=== PATIENT | male | born 1970 | race African-American/Black ===

== ENCOUNTER 2016-08-02 10:00 | Inpatient (IN) | payer OTHER ==
[2016-08-02 10:16] VITALS: BMI 22.6
--- NOTE | 2016-08-02 11:08 | HP ---
CIWA Score - CIWA Score Nausea/Vomitin-Mild Nausea/No Vomiting Muscle Tremors: 1-None Visible, but [place] Anxiety: 4-Mod. Anxious/Guarded Agitation: 1-Slight > Activity Paroxysmal Sweats: 1-Minimal Palms Moist Orientation: 0-Oriented Tacttile Disturbances: 1-Very Mild Itch/Numbness Auditory Disturbances: 2-Mild Harshness/Frighten Visual Disturbances: 1-Very Mild Sensitivity Headache: 2-Mild CIWA-Ar Total Score: 14 Admission ROS BHS - HPI Chief Complaint: I need a break, I need to not drink so I can take care of my mother Allergies/Adverse Reactions: Allergies Allergy/AdvReac Type Severity Reaction Status Date / Time Penicillins Allergy Hives Verified 08/02/16 11:03 lobster Allergy Hives Uncoded 08/02/16 11:03 History of Present Illness: 45 yo gentleman here for detox from alcohol. [facility] last detox in 1999 at [facility]. Denies seizure or black out. States he was on percocet for renal calculi but detoxed himself from that a few weeks ago. [facility] mother is ill and he needs to take care of her. Exam Limitations: Clinical Condition - Ebola screening Have you traveled outside of the country in the last 21 days: No (N) Have you had contact with anyone from an Ebola affected area: No Have you been sick,other than usual withdrawal symptoms: No Do you have a fever: No - Review of Systems Constitutional: Loss of Appetite, Malaise, Changes in sleep, Unintentional Wgt. Loss EENT: reports: No Symptoms Reported Respiratory: reports: No Symptoms reported Cardiac: reports: Irregular Heart Rate GI: reports: Poor Appetite, Indigestion : reports: Frequency Musculoskeletal: reports: No Symptoms Reported Integumentary: reports: No Symptoms Reported Neuro: reports: Headache Endocrine: reports: No Symptoms Reported Hematology: reports: No Symptoms Reported Psychiatric: reports: Judgement Intact, Mood/Affect Appropiate, Orientated x3, Anxious Other Systems: Reviewed and Negative Patient History - Patient Medical History Hx Chronic Obstructive Pulmonary Disease (COPD): No Hx Cancer: No Hx Cardiac Disorders: No Hx Congestive Heart Failure: No Hx Hypertension: No Hx Hypercholesterolemia: No Hx Pacemaker: No HX Cerebrovascular Accident: No Hx Seizures: No Hx Dementia: No Hx Diabetes: No Hx Gastrointestinal Disorders: No Hx Liver Disease: No Hx Genitourinary Disorders: No Hx Sexually Transmitted Disorders: No Hx Renal Disease (ESRD): Yes (hx renal calculi) Hx Thyroid Disease: No Hx Human Immunodeficiency Virus (HIV): No Hx Hepatitis C: No Hx Depression: Yes (no meds currently) Hx Suicide Attempt: No Hx Bipolar Disorder: No Hx Schizophrenia: No - Patient Surgical History Past Surgical History: Yes Hx Orthopedic Surgery: Yes (hx surgical tx right collarbone age 12) - PPD History Previous Implant?: Yes Documented Results: Negative w/o proof Implanted On Prior [facility] Admission?: No PPD to be Administered?: Yes - Reproductive History Patient is a Female of Child Bearing Age (11 -55 yrs old): No (male) - Smoking Cessation Smoking history: Current every day smoker Have you smoked in the past 12 months: Yes Aproximately how many cigarettes per day: 20 Hx Chewing Tobacco Use: No Initiated information on smoking cessation: Yes 'Breaking Loose' booklet given: 08/02/16 (given on floor) - Substance & Tx. History Hx Alcohol Use: Yes Substance Use Type: Alcohol, Cocaine Hx Substance Use Treatment: Yes (detox, rehab) - Substances Abused Alcohol Route: Oral Frequency: Daily Amount used: 1 pint bacardi rum Age of first use: 16 Date of Last Use: 08/01/16 Cocaine Route: Smoking Frequency: Daily Amount used: $100 Age of first use: 19 Date of Last Use: 08/01/16 Family Disease History - Family Disease History Family Disease History: Other: Mother (hx cva, in hospital, dementia) Admission Physical Exam BHS - Vital Signs Vital Signs: Vital Signs - 24 hr 08/02/16 10:13 Temperature 96.7 F L Pulse Rate 80 Respiratory 18 Rate Blood Pressure 121/75 - Physical General Appearance: Yes: Nourished, Appropriately Dressed, Mild Distress, Anxious HEENTM: Yes: Hearing grossly Normal, Normal ENT Inspection, Normocephalic, Normal Voice Respiratory: Yes: Normal Breath Sounds, No Respiratory Distress Neck: Yes: No masses,lesions,Nodules, Supple Breast: Yes: Breast Exam Deferred Cardiology: Yes: Regular Rhythm, Regular Rate Abdominal: Yes: Soft Genitourinary: Yes: Frequency Back: Yes: Normal Inspection Musculoskeletal: Yes: full range of Motion, Gait Steady Extremities: Yes: Normal Inspection, Normal Range of Motion Neurological: Yes: Fully Oriented, Alert, Normal Mood/Affect Integumentary: Yes: Normal Color, Warm Lymphatic: Yes: Within Normal Limits - Diagnostic (1) Alcohol dependence with uncomplicated withdrawal Current Visit: Yes Status: Chronic (2) Nicotine dependence Current Visit: Yes Status: Acute Qualifiers: Nicotine product type: cigarettes Substance use status: uncomplicated Qualified Code(s): F17.210 - Nicotine dependence, cigarettes, uncomplicated (3) Cocaine dependence Current Visit: Yes Status: Acute Cleared for Admission [facility] - Detox or Rehab [facility] Level of Care: Medically Managed Detox Regimen/Protocol: Librium [facility] Breath Alcohol Content Breath Alcohol Content: 0 Urine Drug Screen - Results Drug Screen Negative: No Urine Drug Screen Results: PILAR-Cocaine
[2016-08-02] MEDS ORDERED: NICOTINE POLACRILEX 4 MG GUM BC PRN (11:14)
[2016-08-02] MEDS ORDERED: chlordiazePOXIDE HCL 25 MG CAPSULE PO PRN (11:14)
[2016-08-02] MEDS ORDERED: guaiFENesin/D-METHORPHAN HB 10 ML UNIT-DOSE CUPS PO PRN (11:14)
[2016-08-02] MEDS ORDERED: MAGNESIUM HYDROX 2400MG/30ML ORAL SUSPENSION 30 ML CUP PO PRN (11:14)
[2016-08-02] MEDS ORDERED: hydrOXYzine PAMOATE 50 MG CAPSULE (FP) PO PRN (11:14)
[2016-08-02] MEDS ORDERED: MAG HYDROX/AL HYDROX/SIMETH 30 ML UNIT-DOSE CUP PO PRN (11:14)
[2016-08-02] MEDS ORDERED: chlordiazePOXIDE HCL 25 MG CAPSULE PO ONE (11:14)
[2016-08-02] MEDS ORDERED: ACETAMINOPHEN 325 MG TABLET (FP) PO PRN (11:14)
[2016-08-02] MEDS ORDERED: P-EPHED 60MG/TRIPROLIDI 2.5MG TABLET PO PRN (11:14)
[2016-08-02] MEDS ORDERED: MENTHOL/PHENOL 1 EACH UD MM PRN (11:14)
[2016-08-02] MEDS ORDERED: LOPERAMIDE HCL 2 MG CAPSULE PO PRN (11:14)
[2016-08-02] MEDS ORDERED: MAGNESIUM CITRATE 300 ML BOTTLE PO PRN (11:14)
[2016-08-02] MEDS ORDERED: IBUPROFEN 400 MG TABLET (FP) PO PRN (11:14)
[2016-08-02] MEDS ORDERED: diphenhydrAMINE HCL 50 MG CAPSULE PO PRN (11:14)
--- NOTE | 2016-08-02 16:02 | EKG ---
Test Reason : Blood Pressure : / mmHG Vent. Rate : 072 BPM Atrial Rate : 072 BPM P-R Int : 168 ms QRS Dur : 076 ms QT Int : 386 ms P-R-T Axes : 073 068 061 degrees QTc Int : 422 ms NORMAL SINUS RHYTHM INCREASED R/S RATIO IN V1, CONSIDER EARLY TRANSITION OR POSTERIOR INFARCT ABNORMAL ECG NO PREVIOUS ECGS AVAILABLE Confirmed by SANDI PLUNKETT MD ([id number]) on 08/02/2016 4:02:08 PM Referred By: Confirmed By:SANDI PLUNKETT MD
[2016-08-02 17:57] LABS: URINE APPEARANCE CLEAR; URINE BILIRUBIN NEGATIVE (NEGATIVE); URINE BLOOD NEGATIVE (NEGATIVE); URINE COLOR YELLOW; URINE GLUCOSE (UA) NEGATIVE (NEGATIVE); URINE KETONE NEGATIVE (NEGATIVE); URINE NITRITE NEGATIVE (NEGATIVE); URINE PROTEIN NEGATIVE (NEGATIVE); URINE UROBILINOGEN NEGATIVE E.U./dl (0.2-1.0)
[2016-08-02 18:13] LABS: URINE LEUK ESTERASE TRACE (NEGATIVE)
[2016-08-02] MEDS: chlordiazePOXIDE HCL 25 MG CAPSULE PO SCH ×2 (18:26→23:37)
[2016-08-02 18:50] LABS: URINE MUCUS MANY; URINE RBC <1 /hpf (0-3); URINE WBC 1 /hpf (3-5)
[2016-08-02] MEDS: THIAMINE HCL 100 MG TABLET (FP) PO SCH (23:37)
[2016-08-03] MEDS: chlordiazePOXIDE HCL 25 MG CAPSULE PO SCH ×4 (06:13→22:00)
[2016-08-03 09:19] LABS: MCH 30.4 pg (25.7-33.7); MEAN CELL VOLUME 92.3 fl (80-96); MEAN PLT VOLUME 9.3 fl (7.5-11.1); PLATELET COUNT 211 K/MM3 (134-434); RDW 13.2 % (11.9-15.9)
[2016-08-03 09:26] LABS: ALBUMIN 3.2 g/dl (3.4-5.0); ALK PHOS 46 U/L (45-117); ANION GAP 6 (8-16); BILIRUBIN,TOTAL 0.3 mg/dL (0.2-1.0); CALCIUM 8.6 mg/dL (8.5-10.1); CO2 29 mmol/L (21-32); GLUCOSE,RANDOM 85 mg/dL (74-106); SGOT/AST 12 U/L (15-37); SGPT/ALT 16 U/L (12-78); TOT PROT 6.2 g/dl (6.4-8.2)
[2016-08-03] MEDS: PRENATAL VITAMINS W/ FOLIC ACID TABLET (FP) PO SCH (10:30)
--- NOTE | 2016-08-03 10:30 | PN ---
S CIWA - CIWA Score Nausea/Vomitin Muscle Tremors: 3 Anxiety: 3 Agitation: 2 Paroxysmal Sweats: 1-Minimal Palms Moist Orientation: 0-Oriented Tacttile Disturbances: 1-Very Mild Itch/Numbness Auditory Disturbances: 1-Very Mild Visual Disturbances: 1-Very Mild Sensitivity Headache: 2-Mild CIWA-Ar Total Score: 17 BHS Progress Note (SOAP) Subjective: ALERT,IRRITABLE,ANXIOUS,INTERRUPTED SLEEP,TREMOR Objective: 08/03/16 10:27 Laboratory Last Values WBC 5.0 K/mm3 (4.0-10.0) 08/03/16 07:20 RBC 4.55 M/mm3 (4.00-5.60) 08/03/16 07:20 Hgb 13.8 GM/dL (11.7-16.9) 08/03/16 07:20 Hct 42.0 % (35.4-49) 08/03/16 07:20 MCV 92.3 fl (80-96) 08/03/16 07:20 MCHC 33.0 g/dl (32.0-35.9) 08/03/16 07:20 RDW 13.2 % (11.9-15.9) 08/03/16 07:20 Plt Count 211 K/MM3 (134-434) 08/03/16 07:20 MPV 9.3 fl (7.5-11.1) 08/03/16 07:20 Sodium 141 mmol/L (136-145) 08/03/16 07:20 Potassium 4.1 mmol/L (3.5-5.1) 08/03/16 07:20 Chloride 106 mmol/L (98-107) 08/03/16 07:20 Carbon Dioxide 29 mmol/L (21-32) 08/03/16 07:20 Anion Gap 6 (8-16) L 08/03/16 07:20 BUN 8 mg/dL (7-18) 08/03/16 07:20 Creatinine 1.0 mg/dL (0.7-1.3) 08/03/16 07:20 Creat Clearance w eGFR > 60 (>60) 08/03/16 07:20 Random Glucose 85 mg/dL (74-106) 08/03/16 07:20 Calcium 8.6 mg/dL (8.5-10.1) 08/03/16 07:20 Total Bilirubin 0.3 mg/dL (0.2-1.0) 08/03/16 07:20 AST 12 U/L (15-37) L 08/03/16 07:20 ALT 16 U/L (12-78) 08/03/16 07:20 Alkaline Phosphatase 46 U/L (45-117) 08/03/16 07:20 Total Protein 6.2 g/dl (6.4-8.2) L 08/03/16 07:20 Albumin 3.2 g/dl (3.4-5.0) L 08/03/16 07:20 Urine Color Yellow 08/02/16 14:00 Urine Appearance Clear 08/02/16 14:00 Urine pH 6.0 (5.0-8.0) 08/02/16 14:00 Ur Specific [place] 1.025 (1.001-1.035) 08/02/16 14:00 Urine Protein Negative (NEGATIVE) 08/02/16 14:00 Urine Glucose (UA) Negative (NEGATIVE) 08/02/16 14:00 Urine Ketones Negative (NEGATIVE) 08/02/16 14:00 Urine Blood Negative (NEGATIVE) 08/02/16 14:00 Urine Nitrite Negative (NEGATIVE) 08/02/16 14:00 Urine Bilirubin Negative (NEGATIVE) 08/02/16 14:00 Urine Urobilinogen Negative E.U./dl (0.2-1.0) 08/02/16 14:00 Ur Leukocyte Esterase Trace (NEGATIVE) H 08/02/16 14:00 Urine RBC <1 /hpf (0-3) 08/02/16 14:00 Urine WBC 1 /hpf (3-5) 08/02/16 14:00 Urine Mucus Many 08/02/16 14:00 RPR Titer Nonreactive (NONREACTIVE) 08/03/16 07:20 LABS PENDING 08/03/16 10:28 Vital Signs Temperature 97.9 F 08/03/16 10:00 Pulse Rate 79 08/03/16 10:00 Respiratory Rate 18 08/03/16 10:00 Blood Pressure 118/71 08/03/16 10:00 O2 Sat by Pulse Oximetry (%) Assessment: 08/03/16 10:28 EKG NSR NO CHEST PAIN,NO SOB NO DIZZINESS 08/03/16 10:29 WITHDRAWAL SYMPTOM Plan: CONTINUE DETOX
[2016-08-03] MEDS: THIAMINE HCL 100 MG TABLET (FP) PO SCH (21:24)
[2016-08-04] MEDS: chlordiazePOXIDE HCL 25 MG CAPSULE PO SCH ×2 (05:49→10:09)
--- NOTE | 2016-08-04 09:29 | PN ---
S CIWA - CIWA Score Nausea/Vomitin Muscle Tremors: 3 Anxiety: 2 Agitation: 2 Paroxysmal Sweats: 1-Minimal Palms Moist Orientation: 0-Oriented Tacttile Disturbances: 1-Very Mild Itch/Numbness Auditory Disturbances: 1-Very Mild Visual Disturbances: 1-Very Mild Sensitivity Headache: 2-Mild CIWA-Ar Total Score: 16 BHS Progress Note (SOAP) Subjective: ALERT,IRRITABLE,ANXIOUS,INTERRUPTED SLEEP,TREMOR Objective: 08/04/16 09:28 Vital Signs Temperature 98.4 F 08/04/16 06:00 Pulse Rate 76 08/04/16 06:00 Respiratory Rate 18 08/04/16 06:00 Blood Pressure 107/70 08/04/16 06:00 O2 Sat by Pulse Oximetry (%) Laboratory Last Values WBC 5.0 K/mm3 (4.0-10.0) 08/03/16 07:20 RBC 4.55 M/mm3 (4.00-5.60) 08/03/16 07:20 Hgb 13.8 GM/dL (11.7-16.9) 08/03/16 07:20 Hct 42.0 % (35.4-49) 08/03/16 07:20 MCV 92.3 fl (80-96) 08/03/16 07:20 MCHC 33.0 g/dl (32.0-35.9) 08/03/16 07:20 RDW 13.2 % (11.9-15.9) 08/03/16 07:20 Plt Count 211 K/MM3 (134-434) 08/03/16 07:20 MPV 9.3 fl (7.5-11.1) 08/03/16 07:20 Sodium 141 mmol/L (136-145) 08/03/16 07:20 Potassium 4.1 mmol/L (3.5-5.1) 08/03/16 07:20 Chloride 106 mmol/L (98-107) 08/03/16 07:20 Carbon Dioxide 29 mmol/L (21-32) 08/03/16 07:20 Anion Gap 6 (8-16) L 08/03/16 07:20 BUN 8 mg/dL (7-18) 08/03/16 07:20 Creatinine 1.0 mg/dL (0.7-1.3) 08/03/16 07:20 Creat Clearance w eGFR > 60 (>60) 08/03/16 07:20 Random Glucose 85 mg/dL (74-106) 08/03/16 07:20 Calcium 8.6 mg/dL (8.5-10.1) 08/03/16 07:20 Total Bilirubin 0.3 mg/dL (0.2-1.0) 08/03/16 07:20 AST 12 U/L (15-37) L 08/03/16 07:20 ALT 16 U/L (12-78) 08/03/16 07:20 Alkaline Phosphatase 46 U/L (45-117) 08/03/16 07:20 Total Protein 6.2 g/dl (6.4-8.2) L 08/03/16 07:20 Albumin 3.2 g/dl (3.4-5.0) L 08/03/16 07:20 Urine Color Yellow 08/02/16 14:00 Urine Appearance Clear 08/02/16 14:00 Urine pH 6.0 (5.0-8.0) 08/02/16 14:00 Ur Specific [place] 1.025 (1.001-1.035) 08/02/16 14:00 Urine Protein Negative (NEGATIVE) 08/02/16 14:00 Urine Glucose (UA) Negative (NEGATIVE) 08/02/16 14:00 Urine Ketones Negative (NEGATIVE) 08/02/16 14:00 Urine Blood Negative (NEGATIVE) 08/02/16 14:00 Urine Nitrite Negative (NEGATIVE) 08/02/16 14:00 Urine Bilirubin Negative (NEGATIVE) 08/02/16 14:00 Urine Urobilinogen Negative E.U./dl (0.2-1.0) 08/02/16 14:00 Ur Leukocyte Esterase Trace (NEGATIVE) H 08/02/16 14:00 Urine RBC <1 /hpf (0-3) 08/02/16 14:00 Urine WBC 1 /hpf (3-5) 08/02/16 14:00 Urine Mucus Many 08/02/16 14:00 RPR Titer Nonreactive (NONREACTIVE) 08/03/16 07:20 Assessment: 08/04/16 09:29 WITHDRAWAL SYMPTOM Plan: CONTINUE DETOX
--- NOTE | 2016-08-04 09:52 | CONSULT ---
[facility] Psychiatric Consult - Data Date of interview: 08/04/16 Admission source: [facility] Identifying data: This is a 45 year old black male who is currently homeless, without financial support. Substance Abuse History: Patient with history of alcohol (1pint of bacardi), cocaine($100 daily), nicotine use (smokes cigarettes 1 PPID). Psychiatric History: Patient is poor historian, irritable and angry, admits several psychiatric hospitalizations, states carries a diagnosis of bipolar/ schizophrenia,no follow-up, reports he recently released from 24 months of being incarcerated,states was on Seroquel, Prozac(did not work), Trazodone( gives me a headaches), willing to restart Seroquel 50 mg po hs. Physical/Sexual Abuse/Trauma History: denies Mental Status Exam - Mental Status Exam Alert and Oriented to: Place, Person Cognitive Function: Impaired Patient Appearance: Well Groomed Mood: Angry, Hostile, Irritable Affect: Mood Congruent Patient Behavior: Guarded, Talkative Speech Pattern: Clear, Appropriate Voice Loudness: Normal Thought Process: Tangential Thought Disorder: Paranoid Ideation (on and off) Hallucinations: Auditory (on and off) Suicidal Ideation: Denies Homicidal Ideation: Denies Insight/Judgement: Poor Sleep: Poorly Appetite: Weight loss (lost 30 lbs) Muscle strength/Tone: Normal Gait/Station: Normal Psychiatric Findings - Problem List ([place] 1, 2,3) (1) Cocaine dependence Current Visit: Yes Status: Acute (2) Nicotine dependence Current Visit: Yes Status: Acute Qualifiers: Nicotine product type: cigarettes Substance use status: uncomplicated Qualified Code(s): F17.210 - Nicotine dependence, cigarettes, uncomplicated (3) Alcohol dependence with uncomplicated withdrawal Current Visit: Yes Status: Chronic (4) Schizoaffective disorder Current Visit: Yes Status: Acute - Initial Treatment Plan Initial Treatment Plan: to start Seroquel 50 mg po hs, continue detox. protocol
[2016-08-04] MEDS: PRENATAL VITAMINS W/ FOLIC ACID TABLET (FP) PO SCH (10:09)
[2016-08-04] MEDS: chlordiazePOXIDE 5 MG CAPSULE PO SCH ×2 (17:55→23:57)
[2016-08-04] MEDS ORDERED: QUEtiapine FUMARATE 50 MG TABLET PO SCH (22:00)
[2016-08-05] MEDS: THIAMINE HCL 100 MG TABLET (FP) PO SCH ×2 (00:03→22:21)
[2016-08-05] MEDS: chlordiazePOXIDE 5 MG CAPSULE PO SCH ×2 (05:34→10:32)
--- NOTE | 2016-08-05 09:55 | CONSULT ---
[facility] Psychiatric Consult - Data Date of interview: 08/05/16 Admission source: [facility] Identifying data: This is 45 years old single male residing in Long-Term, supported by [facility] admitted to [address] [place] [address] for Alcohol and Cocaine dependence. Substance Abuse History: Patient reports drinking since 16 years old escalating to 1 pint of Bacardi rum daily,cocaine/crack since 19 years old,spending about $ 100 daily. Medical History: Unremarkable. Psychiatric History: Long and extensive psychiatric history.patient was dx with Schizophrenia,then with Schizoaffective disorder.Reports several psychiatric hospitalizations.Poor compliance with medications due to his cognitive deficit, drug habbits. Physical/Sexual Abuse/Trauma History: denies Mental Status Exam - Mental Status Exam Alert and Oriented to: Time, Place, Person Cognitive Function: Grossly Intact Patient Appearance: Unkempt Mood: Anxious, Irritable Affect: Mood Congruent, Labile Patient Behavior: Cooperative Speech Pattern: Clear Voice Loudness: Mildly Loud Thought Process: Goal Oriented Thought Disorder: Not Present Hallucinations: Denies Suicidal Ideation: Denies Homicidal Ideation: Denies Insight/Judgement: Fair Sleep: Fair Appetite: Fair Muscle strength/Tone: Normal Gait/Station: Normal Psychiatric Findings - Problem List ([place] 1, 2,3) (1) Cocaine dependence Status: Chronic (2) Nicotine dependence Status: Chronic Qualifiers: Nicotine product type: cigarettes Substance use status: uncomplicated Qualified Code(s): F17.210 - Nicotine dependence, cigarettes, uncomplicated (3) Schizoaffective disorder Status: Chronic (4) Alcohol dependence with uncomplicated withdrawal Status: Chronic - Initial Treatment Plan Initial Treatment Plan: Patient was reevaluated today due to ongoing anxiety, irritability,mood instability.Patient reports that Seroquel used to help him when he was on higher doses and taking a few times a day.Properties of Seroquel has been discussed with the patient including side effects,benefits and dose adjustment.Seroquel 50 mg po hs will be adjusted to 100 mg po hs. Supportive therapy provided. Will monitor progress.
[2016-08-05] MEDS: QUEtiapine FUMARATE 50 MG TABLET PO SCH ×2 (10:32→22:21)
[2016-08-05] MEDS: PRENATAL VITAMINS W/ FOLIC ACID TABLET (FP) PO SCH (10:33)
[2016-08-05] MEDS ORDERED: CYCLOBENZAPRINE HCL 10 MG TABLET (FP) PO PRN (11:35)
--- NOTE | 2016-08-05 11:35 | PN ---
BHS Progress Note (SOAP) Subjective: interrupted sleep,lbp , decreased appetite Objective: 08/05/16 11:33 Vital Signs Temperature 98.1 F 08/05/16 10:12 Pulse Rate 77 08/05/16 10:12 Respiratory Rate 18 08/05/16 10:12 Blood Pressure 111/69 08/05/16 10:12 O2 Sat by Pulse Oximetry (%) Laboratory Tests 08/02/16 08/03/16 08/03/16 14:00 07:20 07:20 WBC 5.0 RBC 4.55 Hgb 13.8 Hct 42.0 MCV 92.3 MCHC 33.0 RDW 13.2 Plt Count 211 MPV 9.3 Sodium 141 Potassium 4.1 Chloride 106 Carbon Dioxide 29 Anion Gap 6 L BUN 8 Creatinine 1.0 Creat Clearance w eGFR > 60 Random Glucose 85 Calcium 8.6 Total Bilirubin 0.3 AST 12 L ALT 16 Alkaline Phosphatase 46 Total Protein 6.2 L Albumin 3.2 L Urine Color Yellow Urine Appearance Clear Urine pH 6.0 Ur Specific [place] 1.025 Urine Protein Negative Urine Glucose (UA) Negative Urine Ketones Negative Urine Blood Negative Urine Nitrite Negative Urine Bilirubin Negative Urine Urobilinogen Negative Ur Leukocyte Esterase Trace H Urine RBC <1 Urine WBC 1 Urine Mucus Many RPR Titer 08/03/16 07:20 WBC RBC Hgb Hct MCV MCHC RDW Plt Count MPV Sodium Potassium Chloride Carbon Dioxide Anion Gap BUN Creatinine Creat Clearance w eGFR Random Glucose Calcium Total Bilirubin AST ALT Alkaline Phosphatase Total Protein Albumin Urine Color Urine Appearance Urine pH Ur Specific [place] Urine Protein Urine Glucose (UA) Urine Ketones Urine Blood Urine Nitrite Urine Bilirubin Urine Urobilinogen Ur Leukocyte Esterase Urine RBC Urine WBC Urine Mucus RPR Titer Nonreactive pt aox3 in nad ambulating Assessment: 08/05/16 11:33 withdrawl sxs lbp Plan: cont. detox increase fluids flexeril 10mg tid/prn ensure bid d/c in am
[2016-08-05] MEDS: chlordiazePOXIDE HCL 10 MG CAPSULE PO SCH ×2 (17:41→23:39)
[2016-08-06] MEDS: chlordiazePOXIDE HCL 10 MG CAPSULE PO SCH (05:34)
--- NOTE | 2016-08-06 08:37 | DS ---
[facility] Detox Discharge Summary Admission Date: 08/02/16 Discharge Date: 08/06/16 - History Present History: Alcohol Dependence, Cocaine Dependence - Physical Exam Results Vital Signs: Vital Signs Temperature 97.5 F L 08/06/16 06:28 Pulse Rate 78 08/06/16 06:28 Respiratory Rate 18 08/06/16 06:28 Blood Pressure 102/61 08/06/16 06:28 O2 Sat by Pulse Oximetry (%) - Treatment Hospital Course: Detox Protocol Followed, Detoxed Safely, Responded well, Discharged Condition Good, Rehab Referral Accepted - Medication Discharge Medications: Ambulatory Orders Quetiapine Fumarate [Seroquel -] 50 mg PO HS #30 tablet 08/04/16 - Diagnosis (1) Alcohol dependence with uncomplicated withdrawal Current Visit: Yes Status: Chronic (2) Cocaine dependence Current Visit: Yes Status: Chronic (3) Nicotine dependence Current Visit: Yes Status: Chronic Qualifiers: Nicotine product type: cigarettes Substance use status: uncomplicated Qualified Code(s): F17.210 - Nicotine dependence, cigarettes, uncomplicated (4) Schizoaffective disorder Current Visit: Yes Status: Chronic - AMA Did Patient Leave Against Medical Advice: No
[2016-08-06] MEDS: QUEtiapine FUMARATE 50 MG TABLET PO SCH (10:00)
[2016-08-06] MEDS: PRENATAL VITAMINS W/ FOLIC ACID TABLET (FP) PO SCH (10:01)
[2016-08-06 10:04] VITALS: BP 109/67; PULSE 89; TEMP 98.6
== END 2016-08-06 10:30 | disposition home or self-care (01) | DRG 774 ==
LOC: YASAS 10:00 → Y6N 13:31
PROVIDERS: ADMIT Internal Medicine; ATTEND Internal Medicine
PROC: HZ2ZZZZ Detoxification Services for Substance Abuse Treatment (ICD-10-PCS; principal; 2016-08-02)
DX: F10.230 Alcohol dependence with withdrawal, uncomplicated (principal); F14.20 Cocaine dependence, uncomplicated; F17.210 Nicotine dependence, cigarettes, uncomplicated; F25.9 Schizoaffective disorder, unspecified; M54.5 Low back pain; Z87.442 Personal history of urinary calculi
CPT/HCPCS: 36415; 80053; 81003; 81015; 85027; 86593; 93005; 93010

== ENCOUNTER 2017-08-25 11:54 | Inpatient (IN) | payer OTHER ==
[2017-08-25 14:16] VITALS: BMI 26.4
--- NOTE | 2017-08-25 14:50 | HP ---
CIWA Score - CIWA Score Nausea/Vomitin-No Nausea/No Vomiting Muscle Tremors: 3 Anxiety: 4-Mod. Anxious/Guarded Agitation: 2 Paroxysmal Sweats: 3 Orientation: 0-Oriented Tacttile Disturbances: 2-Mild Itch/Numbness/Burn Auditory Disturbances: 0-None Visual Disturbances: 0-None Headache: 2-Mild CIWA-Ar Total Score: 16 Admission ROS BHS - HPI Chief Complaint: I'm just tired. I need help." Patient is here to detox from Alcohol. Allergies/Adverse Reactions: Allergies Allergy/AdvReac Type Severity Reaction Status Date / Time Penicillins Allergy Hives Verified 08/02/16 11:03 lobster Allergy Hives Uncoded 08/02/16 11:03 Exam Limitations: No Limitations - Ebola screening Have you traveled outside of the country in the last 21 days: No Have you had contact with anyone from an Ebola affected area: No Have you been sick,other than usual withdrawal symptoms: No Do you have a fever: No - Review of Systems Constitutional: Chills, Diaphoresis, Loss of Appetite, Malaise, Night Sweats, Changes in sleep, Unintentional Wgt. Loss (Lost approx. 10 lbs. over last 1 month.) EENT: reports: Hearing Loss, Nose Congestion, Sinus Pressure Respiratory: reports: Cough Cardiac: reports: No Symptoms Reported GI: reports: Diarrhea, Poor Appetite, Abdominal cramping (Heartburn.) : reports: Pain (Lower Back Pain due to Kidney stone (Chronic occurrence).) Musculoskeletal: reports: Back Pain (Due to Chronic Kidney stones.), Joint Pain , Joint Stiffness Integumentary: reports: No Symptoms Reported Neuro: reports: Headache, Tremors Endocrine: reports: No Symptoms Reported Hematology: reports: No Symptoms Reported Psychiatric: reports: Judgement Intact, Mood/Affect Appropiate, Orientated x3, Anxious, Depressed (In past (with Treatment); None currently.) Other Systems: Reviewed and Negative Patient History - Patient Medical History Hx Anemia: No Hx Asthma: No Hx Chronic Obstructive Pulmonary Disease (COPD): No Hx Cancer: No Hx Cardiac Disorders: No Hx Congestive Heart Failure: No Hx Hypertension: No Hx Hypercholesterolemia: No Hx Pacemaker: No HX Cerebrovascular Accident: No Hx Seizures: No Hx Dementia: No Hx Diabetes: No Hx Gastrointestinal Disorders: No Hx Liver Disease: No Hx Genitourinary Disorders: No Hx Sexually Transmitted Disorders: No Hx Renal Disease (ESRD): Yes (hx renal calculi) Hx Thyroid Disease: No Hx Human Immunodeficiency Virus (HIV): No (Last Tested: 06/2017: NEGATIVE.) Hx Hepatitis C: No (Last Tested: 2008: NEGATIVE.) Hx Depression: Yes (Not currently; Treatment in past.) 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 - Patient Surgical History Past Surgical History: Yes Hx Neurologic Surgery: No Hx Cataract Extraction: No Hx Cardiac Surgery: No Hx Lung Surgery: No Hx Breast Surgery: No Hx Breast Biopsy: No Hx Abdominal Surgery: No Hx Appendectomy: No Hx Cholecystectomy: No Hx Genitourinary Surgery: Yes (Stent in Kidneys to prevent Stone formation (1998 ).) Hx Orthopedic Surgery: Yes (hx surgical tx right collarbone age 12) Anesthesia Reaction: No - PPD History Previous Implant?: Yes Documented Results: Negative w/proof Implanted On Prior [facility] Admission?: Yes Date: 08/04/16 PPD to be Administered?: No - Reproductive History Patient is a Female of Child Bearing Age (11 -55 yrs old): No (PATIENT IS MALE.) - Smoking Cessation Smoking history: Current every day smoker Have you smoked in the past 12 months: Yes Aproximately how many cigarettes per day: 20 Cigars Per Day: 0 (Stopped smoking 2 months ago.) Hx Chewing Tobacco Use: No Initiated information on smoking cessation: Yes 'Breaking Loose' booklet given: 08/25/17 (GIVEN TO PATIENT.) - Substance & Tx. History Hx Alcohol Use: Yes Hx Substance Use: Yes Substance Use Type: Alcohol, Cocaine - Substances Abused Alcohol Route: Oral Frequency: Daily Amount used: 1 bottle Bacardi Rum. Age of first use: 46 Date of Last Use: 08/23/17 Cocaine Route: Smoking Frequency: Daily Age of first use: 19 Date of Last Use: 08/25/17 Family Disease History - Family Disease History Family Disease History: CA: Mother (hx cva, in hospital, dementia; Breast Ca.), Other: Mother Admission Physical Exam BHS - Vital Signs Vital Signs: Vital Signs - 24 hr 08/25/17 14:15 Temperature 97 F L Pulse Rate 86 Respiratory 20 Rate Blood Pressure 112/68 - Physical General Appearance: Yes: No Apparent Distress, Nourished, Appropriately Dressed , Tremorous, Anxious HEENTM: Yes: Hearing grossly Normal, Normocephalic, Normal Voice, JARRED, Pharynx Normal Respiratory: Yes: Chest Non-Tender, Lungs Clear, No Respiratory Distress, No Accessory Muscle Use Neck: Yes: No masses,lesions,Nodules, Supple, Trachea in good position Breast: Yes: Breast Exam Deferred Cardiology: Yes: Regular Rhythm, Regular Rate, S1, S2 Abdominal: Yes: Normal Bowel Sounds, Non Tender, Flat, Soft Genitourinary: Yes: Within Normal Limits Back: Yes: CVA Tenderness, Decreased Range of Motion Musculoskeletal: Yes: full range of Motion, Gait Steady, Back pain (Patient has history of Chronic Renal Stones.) Extremities: Yes: Normal Capillary Refill, Normal Range of Motion, Non-Tender, Tremors Neurological: Yes: Fully Oriented, Alert, Normal Mood/Affect, Normal Response Integumentary: Yes: Normal Color, Dry, Warm Lymphatic: Yes: Within Normal Limits - Diagnostic (1) Cocaine dependence, uncomplicated Current Visit: Yes Status: Acute (2) History of bipolar disorder Current Visit: Yes Status: Suspected (3) Alcohol dependence with uncomplicated withdrawal Current Visit: Yes Status: Acute (4) Nicotine dependence Current Visit: Yes Status: Chronic Qualifiers: Nicotine product type: cigarettes Substance use status: uncomplicated Qualified Code(s): F17.210 - Nicotine dependence, cigarettes, uncomplicated (5) History of renal calculi Current Visit: Yes Status: Chronic Cleared for Admission [facility] - Detox or Rehab [facility] Level of Care: Medically Managed Detox Regimen/Protocol: Librium [facility] Breath Alcohol Content Breath Alcohol Content: 0 Urine Drug Screen - Results Drug Screen Negative: No Urine Drug Screen Results: PILAR-Cocaine, BZO-Benzodiazepines
[2017-08-25] MEDS ORDERED: ACETAMINOPHEN 325 MG TABLET (FP) PO PRN (15:16)
[2017-08-25] MEDS ORDERED: guaiFENesin/D-METHORPHAN HB 10 ML UNIT-DOSE CUPS PO PRN (15:16)
[2017-08-25] MEDS ORDERED: LOPERAMIDE HCL 2 MG CAPSULE PO PRN (15:16)
[2017-08-25] MEDS ORDERED: MENTHOL/PHENOL 1 EACH UD MM PRN (15:16)
[2017-08-25] MEDS ORDERED: chlordiazePOXIDE HCL 25 MG CAPSULE PO PRN (15:16)
[2017-08-25] MEDS ORDERED: NICOTINE POLACRILEX 2 MG GUM BUC PRN (15:16)
[2017-08-25] MEDS ORDERED: MAGNESIUM HYDROX 2400MG/30ML ORAL SUSPENSION 30 ML CUP PO PRN (15:16)
[2017-08-25] MEDS ORDERED: MAGNESIUM CITRATE 300 ML BOTTLE PO PRN (15:16)
[2017-08-25] MEDS ORDERED: MAG HYDROX/AL HYDROX/SIMETH 30 ML UNIT-DOSE CUP PO PRN (15:16)
[2017-08-25] MEDS ORDERED: NAPROXEN 500 MG TABLET (FP) PO PRN (15:20)
[2017-08-25] MEDS: chlordiazePOXIDE HCL 25 MG CAPSULE PO ONE ×3 (19:59→20:07)
[2017-08-25] MEDS: P-EPHED 60MG/TRIPROLIDI 2.5MG TABLET PO PRN (20:00)
[2017-08-25] MEDS: NICOTINE 21 MG/24 HOURS TOPICAL PATCH TD SCH (20:01)
[2017-08-25] MEDS: chlordiazePOXIDE HCL 25 MG CAPSULE PO SCH ×2 (20:02→22:54)
[2017-08-25] MEDS: THIAMINE HCL 100 MG TABLET (FP) PO SCH (22:54)
[2017-08-25 23:25] LABS: URINE APPEARANCE TURBID; URINE BILIRUBIN NEGATIVE (NEGATIVE); URINE BLOOD NEGATIVE (NEGATIVE); URINE COLOR AMBER; URINE GLUCOSE (UA) NEGATIVE (NEGATIVE); URINE KETONE NEGATIVE (NEGATIVE); URINE LEUK ESTERASE NEGATIVE (NEGATIVE); URINE NITRITE NEGATIVE (NEGATIVE); URINE UROBILINOGEN NEGATIVE mg/dL (0.2-1.0)
[2017-08-25 23:28] LABS: URINE PROTEIN 1+ (NEGATIVE)
[2017-08-25 23:35] LABS: EPI CELLS RARE /HPF (FEW); URINE BACTERIA RARE /hpf (NONE SEEN); URINE MUCUS MANY
[2017-08-26] MEDS: chlordiazePOXIDE HCL 25 MG CAPSULE PO SCH ×4 (06:14→22:43)
--- NOTE | 2017-08-26 09:51 | EKG ---
Test Reason : Blood Pressure : / mmHG Vent. Rate : 082 BPM Atrial Rate : 082 BPM P-R Int : 168 ms QRS Dur : 078 ms QT Int : 372 ms P-R-T Axes : 062 062 049 degrees QTc Int : 434 ms NORMAL SINUS RHYTHM NORMAL ECG WHEN COMPARED WITH ECG OF 02-AUG-2016 14:53, NO SIGNIFICANT CHANGE WAS FOUND Confirmed by BONNIE SARABIA MD ([id number]) on 08/26/2017 9:51:14 AM Referred By: Confirmed By:BONNIE SARABIA MD
[2017-08-26] MEDS: PRENATAL VITAMINS W/ FOLIC ACID TABLET (FP) PO SCH (10:28)
[2017-08-26 10:29] LABS: HEMATOCRIT 44.4 % (35.4-49); HEMOGLOBIN 14.4 GM/dL (11.7-16.9); MCH 29.5 pg (25.7-33.7); MCHC 32.4 g/dl (32.0-35.9); MEAN CELL VOLUME 91.1 fl (80-96); MEAN PLT VOLUME 9.4 fl (7.5-11.1); PLATELET COUNT 215 K/MM3 (134-434); RBC 4.87 M/mm3 (4.00-5.60); RDW 13.4 % (11.9-15.9)
[2017-08-26] MEDS: TAMSULOSIN HCL 0.4 MG CAP.ER.24H (FP) PO SCH (10:29)
[2017-08-26] MEDS: NICOTINE 21 MG/24 HOURS TOPICAL PATCH TD SCH (10:29)
[2017-08-26 10:34] LABS: ALBUMIN 3.7 g/dl (3.4-5.0); ANION GAP 6 (8-16); BILIRUBIN,TOTAL 0.3 mg/dL (0.2-1.0); BLOOD UREA NITROGEN 14 mg/dL (7-18); CALCIUM 8.8 mg/dL (8.5-10.1); CHLORIDE 104 mmol/L (98-107); CO2 29 mmol/L (21-32); CREATININE 1.1 mg/dL (0.7-1.3); GLUCOSE,RANDOM 93 mg/dL (74-106); POTASSIUM 4.2 mmol/L (3.5-5.1); SGOT/AST 55 U/L (15-37); SGPT/ALT 56 U/L (12-78); SODIUM 139 mmol/L (136-145)
[2017-08-26 10:38] LABS: ALK PHOS 63 U/L (45-117); TOT PROT 7.5 g/dl (6.4-8.2)
[2017-08-26 11:23] LABS: SICKLE CELL SCREEN NEGATIVE (NEGATIVE)
--- NOTE | 2017-08-26 15:52 | PN ---
[facility] CIWA - CIWA Score Nausea/Vomitin-No Nausea/No Vomiting Muscle Tremors: 3 Anxiety: 4-Mod. Anxious/Guarded Agitation: 2 Paroxysmal Sweats: 2 Orientation: 0-Oriented Tacttile Disturbances: 3-Moderate Itch/Numb/Burn Auditory Disturbances: 0-None Visual Disturbances: 2-Mild Sensitivity Headache: 0-None Present CIWA-Ar Total Score: 16 BHS Progress Note (SOAP) Subjective: Sweating, Tremors, Anxious, Fatigue, Body Aches. Objective: PT. A & O X 3. NO ACUTE DISTRESS. 08/26/17 15:50 Vital Signs Temperature 98.5 F 08/26/17 13:53 Pulse Rate 82 08/26/17 13:53 Respiratory Rate 18 08/26/17 13:53 Blood Pressure 118/77 08/26/17 13:53 O2 Sat by Pulse Oximetry (%) Laboratory Tests 08/25/17 08/26/17 08/26/17 08:20 06:00 06:00 WBC 5.0 RBC 4.87 Hgb 14.4 Hct 44.4 MCV 91.1 MCH 29.5 MCHC 32.4 RDW 13.4 Plt Count 215 MPV 9.4 Sickle Cell Screen Negative Sodium 139 Potassium 4.2 Chloride 104 Carbon Dioxide 29 Anion Gap 6 L BUN 14 D Creatinine 1.1 Creat Clearance w eGFR > 60 Random Glucose 93 Calcium 8.8 Total Bilirubin 0.3 AST 55 H D ALT 56 D Alkaline Phosphatase 63 D Total Protein 7.5 D Albumin 3.7 Urine Color [place] Urine Appearance Turbid Urine pH 6.0 Ur Specific [place] 1.026 Urine Protein 1+ H Urine Glucose (UA) Negative Urine Ketones Negative Urine Blood Negative Urine Nitrite Negative Urine Bilirubin Negative Urine Urobilinogen Negative Ur Leukocyte Esterase Negative Urine WBC (Auto) 5 Urine RBC (Auto) 3 Ur Epithelial Cells Rare Urine Bacteria Rare Urine Mucus Many LABS NOTED. RPR, HCV AB, AND HIV AB RESULTS PENDING. 08/26/17 15:51 Assessment: 08/26/17 15:50 WITHDRAWAL SYMPTOMS. Plan: CONTINUE DETOX.
[2017-08-26] MEDS: THIAMINE HCL 100 MG TABLET (FP) PO SCH (22:43)
[2017-08-27] MEDS: chlordiazePOXIDE HCL 25 MG CAPSULE PO SCH ×3 (05:13→10:42)
[2017-08-27] MEDS ORDERED: CYCLOBENZAPRINE HCL 10 MG TABLET (FP) PO PRN (09:53)
[2017-08-27] MEDS: PRENATAL VITAMINS W/ FOLIC ACID TABLET (FP) PO SCH (10:42)
[2017-08-27] MEDS: NICOTINE 21 MG/24 HOURS TOPICAL PATCH TD SCH (10:43)
[2017-08-27] MEDS: TAMSULOSIN HCL 0.4 MG CAP.ER.24H (FP) PO SCH (10:43)
--- NOTE | 2017-08-27 12:22 | PN ---
[facility] CIWA - CIWA Score Nausea/Vomitin-No Nausea/No Vomiting Muscle Tremors: 2 Anxiety: 4-Mod. Anxious/Guarded Agitation: 1-Slight > Activity Paroxysmal Sweats: 3 Orientation: 0-Oriented Tacttile Disturbances: 2-Mild Itch/Numbness/Burn Auditory Disturbances: 0-None Visual Disturbances: 3-Moderate Sensitivity Headache: 0-None Present CIWA-Ar Total Score: 15 S Progress Note (SOAP) Subjective: Fatigue, Body Aches, Anxious, Sweating. Objective: PT. A & O X 3, OBSERVED AMBULATING ON UNIT. NO ACUTE DISTRESS. 08/27/17 12:20 Vital Signs Temperature 95.7 F L 08/27/17 09:20 Pulse Rate 75 08/27/17 09:20 Respiratory Rate 20 08/27/17 09:20 Blood Pressure 117/80 08/27/17 09:20 O2 Sat by Pulse Oximetry (%) Laboratory Tests 08/25/17 08/26/17 08/26/17 08:20 06:00 06:00 WBC 5.0 RBC 4.87 Hgb 14.4 Hct 44.4 MCV 91.1 MCH 29.5 MCHC 32.4 RDW 13.4 Plt Count 215 MPV 9.4 Sickle Cell Screen Negative Sodium 139 Potassium 4.2 Chloride 104 Carbon Dioxide 29 Anion Gap 6 L BUN 14 D Creatinine 1.1 Creat Clearance w eGFR > 60 Random Glucose 93 Calcium 8.8 Total Bilirubin 0.3 AST 55 H D ALT 56 D Alkaline Phosphatase 63 D Total Protein 7.5 D Albumin 3.7 Urine Color Taylor Urine Appearance Turbid Urine pH 6.0 Ur Specific [place] 1.026 Urine Protein 1+ H Urine Glucose (UA) Negative Urine Ketones Negative Urine Blood Negative Urine Nitrite Negative Urine Bilirubin Negative Urine Urobilinogen Negative Ur Leukocyte Esterase Negative Urine WBC (Auto) 5 Urine RBC (Auto) 3 Ur Epithelial Cells Rare Urine Bacteria Rare Urine Mucus Many RPR Titer Hepatitis C Antibody HIV 1&2 Antibody Screen HIV P24 Antigen 08/26/17 08/26/17 08/26/17 06:00 06:00 06:00 WBC RBC Hgb Hct MCV MCH MCHC RDW Plt Count MPV Sickle Cell Screen Sodium Potassium Chloride Carbon Dioxide Anion Gap BUN Creatinine Creat Clearance w eGFR Random Glucose Calcium Total Bilirubin AST ALT Alkaline Phosphatase Total Protein Albumin Urine Color Urine Appearance Urine pH Ur Specific [place] Urine Protein Urine Glucose (UA) Urine Ketones Urine Blood Urine Nitrite Urine Bilirubin Urine Urobilinogen Ur Leukocyte Esterase Urine WBC (Auto) Urine RBC (Auto) Ur Epithelial Cells Urine Bacteria Urine Mucus RPR Titer Nonreactive Hepatitis C Antibody 0.2 HIV 1&2 Antibody Screen Negative HIV P24 Antigen Negative LABS NOTED. Assessment: 08/27/17 12:21 WITHDRAWAL SYMPTOMS. Plan: CONTINUE DETOX. PRN FLEXERIL FOR BODY ACHES / MUSCLE SPASMS. INCREASE DAILY PO FLUID INTAKE.
[2017-08-27] MEDS: chlordiazePOXIDE 5 MG CAPSULE PO SCH ×2 (17:32→22:04)
[2017-08-27] MEDS: THIAMINE HCL 100 MG TABLET (FP) PO SCH (22:03)
[2017-08-27] MEDS: P-EPHED 60MG/TRIPROLIDI 2.5MG TABLET PO PRN (22:03)
[2017-08-28] MEDS: chlordiazePOXIDE 5 MG CAPSULE PO SCH (07:52)
[2017-08-28 09:42] VITALS: BP 120/75; PULSE 82; TEMP 98.6
[2017-08-28] MEDS: PRENATAL VITAMINS W/ FOLIC ACID TABLET (FP) PO SCH (10:32)
[2017-08-28] MEDS: NICOTINE 21 MG/24 HOURS TOPICAL PATCH TD SCH (10:33)
[2017-08-28] MEDS: TAMSULOSIN HCL 0.4 MG CAP.ER.24H (FP) PO SCH (10:33)
[2017-08-28] MEDS ORDERED: chlordiazePOXIDE HCL 10 MG CAPSULE PO SCH ×2 (11:00→17:00)
--- NOTE | 2017-08-28 13:31 | DS ---
[facility] Detox Discharge Summary Admission Date: 08/25/17 Discharge Date: 08/28/17 - History Present History: Alcohol Dependence, Cocaine Dependence Additional Comments: PATIENT GOING TO [facility] ([place], [place] FOR AFTERCARE. AT TIME OF DISCHARGE, PATIENT REPORTS THAT CURRENT DETOX SYMPTOMS ARE MINIMAL AND THAT HE FEELS WELL OVERALL. PATIENT WAS DISCHARGED FROM DETOX UNIT IN STABLE MEDICAL CONDITION. Pertinent Past History: Nicotine Dependence, History of Renal Calculi, History of Bipolar Disorder. - Physical Exam Results Vital Signs: Vital Signs Temperature 98.6 F 08/28/17 09:41 Pulse Rate 82 08/28/17 09:41 Respiratory Rate 18 08/28/17 09:41 Blood Pressure 120/75 08/28/17 09:41 O2 Sat by Pulse Oximetry (%) Pertinent Admission Physical Exam Findings: WITHDRAWAL SYMPTOMS. Laboratory Tests 08/25/17 08/26/17 08/26/17 08:20 06:00 06:00 WBC 5.0 RBC 4.87 Hgb 14.4 Hct 44.4 MCV 91.1 MCH 29.5 MCHC 32.4 RDW 13.4 Plt Count 215 MPV 9.4 Sickle Cell Screen Negative Sodium 139 Potassium 4.2 Chloride 104 Carbon Dioxide 29 Anion Gap 6 L BUN 14 D Creatinine 1.1 Creat Clearance w eGFR > 60 Random Glucose 93 Calcium 8.8 Total Bilirubin 0.3 AST 55 H D ALT 56 D Alkaline Phosphatase 63 D Total Protein 7.5 D Albumin 3.7 Urine Color Taylor Urine Appearance Turbid Urine pH 6.0 Ur Specific [place] 1.026 Urine Protein 1+ H Urine Glucose (UA) Negative Urine Ketones Negative Urine Blood Negative Urine Nitrite Negative Urine Bilirubin Negative Urine Urobilinogen Negative Ur Leukocyte Esterase Negative Urine WBC (Auto) 5 Urine RBC (Auto) 3 Ur Epithelial Cells Rare Urine Bacteria Rare Urine Mucus Many RPR Titer Hepatitis C Antibody HIV 1&2 Antibody Screen HIV P24 Antigen 08/26/17 08/26/17 08/26/17 06:00 06:00 06:00 WBC RBC Hgb Hct MCV MCH MCHC RDW Plt Count MPV Sickle Cell Screen Sodium Potassium Chloride Carbon Dioxide Anion Gap BUN Creatinine Creat Clearance w eGFR Random Glucose Calcium Total Bilirubin AST ALT Alkaline Phosphatase Total Protein Albumin Urine Color Urine Appearance Urine pH Ur Specific [place] Urine Protein Urine Glucose (UA) Urine Ketones Urine Blood Urine Nitrite Urine Bilirubin Urine Urobilinogen Ur Leukocyte Esterase Urine WBC (Auto) Urine RBC (Auto) Ur Epithelial Cells Urine Bacteria Urine Mucus RPR Titer Nonreactive Hepatitis C Antibody 0.2 HIV 1&2 Antibody Screen Negative HIV P24 Antigen Negative LABS NOTED. - Treatment Hospital Course: Detox Protocol Followed, Detoxed Safely, Responded well, Discharged Condition Good, Rehab Referral Accepted Patient has Accepted a Rehab Referral to: [facility] ([place] - Medication Discharge Medications: Ambulatory Orders Tamsulosin HCl [Flomax] 0.4 mg PO DAILY 08/25/17 - Diagnosis (1) Cocaine dependence, uncomplicated Status: Acute (2) History of bipolar disorder Status: Suspected (3) Alcohol dependence with uncomplicated withdrawal Status: Acute (4) Nicotine dependence Status: Chronic Qualifiers: Nicotine product type: cigarettes Substance use status: uncomplicated Qualified Code(s): F17.210 - Nicotine dependence, cigarettes, uncomplicated (5) History of renal calculi Status: Chronic - AMA Did Patient Leave Against Medical Advice: No
== END 2017-08-28 12:12 | disposition home or self-care (01) | DRG 774 ==
LOC: YASAS 11:54 → Y3N 16:50
PROVIDERS: ADMIT Internal Medicine; ATTEND Internal Medicine
PROC: HZ2ZZZZ Detoxification Services for Substance Abuse Treatment (ICD-10-PCS; principal; 2017-08-25)
DX: F10.230 Alcohol dependence with withdrawal, uncomplicated (principal); F14.20 Cocaine dependence, uncomplicated; F17.210 Nicotine dependence, cigarettes, uncomplicated; F31.9 Bipolar disorder, unspecified; Z87.442 Personal history of urinary calculi; Z88.0 Allergy status to penicillin; Z91.013 Allergy to seafood; Z96.0 Presence of urogenital implants
CPT/HCPCS: 36415; 80053; 81003; 81015; 85027; 85660; 86593; 86803; 87389; 93005; 93010

== ENCOUNTER 2019-02-19 11:15 | Inpatient (IN) | payer OTHER ==
[2019-02-19 12:45] VITALS: BMI 23.2
--- NOTE | 2019-02-19 14:16 | HP ---
CIWA Score Nausea/Vomitin Muscle Tremors: 4-Moderate,w/Arms Extend Anxiety: 4-Mod. Anxious/Guarded Agitation: 1-Slight > Activity Paroxysmal Sweats: 1-Minimal Palms Moist Orientation: 0-Oriented Tacttile Disturbances: 0-None Auditory Disturbances: 1-Very Mild Visual Disturbances: 1-Very Mild Sensitivity Headache: 2-Mild CIWA-Ar Total Score: 16 - Admission Criteria [facility] Guidelines: Admission for Medically Managed Detox: Requires at least one of the followin. CIWA greater than 12 2. Seizures within the past 24 hours 3. Delirium tremens within the past 24 hours 4. Hallucinations within the past 24 hours 5. Acute intervention needed for co occurring medical disorder 6. Acute intervention needed for co occurring psychiatric disorder 7. Severe withdrawal that cannot be handled at a lower level of care (continued vomiting, continued diarrhea, abnormal vital signs) requiring intravenous medication and/or fluids 8. Patient presents the following: CIWA greater than 12 Admission Criteria Met: Admission criteria met Admission ROS BHS - HPI Chief Complaint: I'm out of control, I need help, this is the first step Allergies/Adverse Reactions: Allergies Allergy/AdvReac Type Severity Reaction Status Date / Time Penicillins Allergy Hives Verified 02/19/19 12:32 lobster Allergy Hives Uncoded 02/19/19 12:32 History of Present Illness: 48 yo gentleman here for detox from alcohol - also using crack. Although urine tox + THC he denies any marijuana use for two weeks and thinks must be mixed with cocaine. NO seizures but does have black outs. Drinks first thing in the morning 'two nips are my wake up drink'. Last time in detox was here 08/25/17 - he left A and went to care home for parole violation and was released on 12/31/18 when he resumed using alcohol and crack. 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 Exam Limitations: No Limitations - Ebola screening Have you traveled outside of the country in the last 21 days: No (N) Have you had contact with anyone from an Ebola affected area: No Do you have a fever: No - Review of Systems Constitutional: Chills, Loss of Appetite, Malaise, Changes in sleep, Weakness, Unintentional Wgt. Loss EENT: reports: No Symptoms Reported Respiratory: reports: No Symptoms reported Cardiac: reports: Chest Tightness GI: reports: Nausea, Poor Appetite, Poor Fluid Intake, Indigestion, Abdominal cramping : reports: Frequency Musculoskeletal: reports: Back Pain, Muscle Pain Integumentary: reports: Dryness Neuro: reports: Headache, Tremors Endocrine: reports: No Symptoms Reported Hematology: reports: No Symptoms Reported Psychiatric: reports: Judgement Intact, Mood/Affect Appropiate, Orientated x3, Anxious Other Systems: Reviewed and Negative Patient History - Patient Medical History Hx Anemia: No Hx Asthma: No Hx Chronic Obstructive Pulmonary Disease (COPD): No Hx Cancer: No Hx Cardiac Disorders: No Hx Congestive Heart Failure: No Hx Hypertension: No Hx Hypercholesterolemia: No Hx Pacemaker: No HX Cerebrovascular Accident: No Hx Seizures: No Hx Dementia: No Hx Diabetes: No Hx Gastrointestinal Disorders: Yes (GERD) Hx Liver Disease: No Hx Genitourinary Disorders: Yes (hx BPH but non adherent with meds) Hx Sexually Transmitted Disorders: No Hx Renal Disease (ESRD): No Hx Thyroid Disease: No Hx Human Immunodeficiency Virus (HIV): No (Last Tested: 06/2017: NEGATIVE.) Hx Hepatitis C: No (Last Tested: 2008: NEGATIVE.) Hx Depression: Yes (hx - non adherent with meds or care) Hx Suicide Attempt: Yes (tried to drink cleaning fluid in 1990.) Hx Bipolar Disorder: Yes (No meds.- hx hospitalized years ago) Hx Schizophrenia: No - Patient Surgical History Past Surgical History: Yes Hx Neurologic Surgery: No Hx Cataract Extraction: No Hx Cardiac Surgery: No Hx Lung Surgery: No Hx Breast Surgery: No Hx Breast Biopsy: No Hx Abdominal Surgery: No Hx Appendectomy: No Hx Cholecystectomy: No Hx Genitourinary Surgery: Yes (Stent in Kidneys to prevent Stone formation (1998 ).) Hx Orthopedic Surgery: Yes (hx surgical tx right collarbone age 12) Anesthesia Reaction: No - PPD History Previous Implant?: Yes Documented Results: Negative w/proof Implanted On Prior R Admission?: Yes Date: 08/04/16 Results: 0mm PPD to be Administered?: Yes - Reproductive History Patient is a Female of Child Bearing Age (11 -55 yrs old): No - Smoking Cessation Smoking history: Current every day smoker Have you smoked in the past 12 months: Yes Aproximately how many cigarettes per day: 20 Cigars Per Day: 0 Hx Chewing Tobacco Use: No Initiated information on smoking cessation: Yes 'Breaking Loose' booklet given: 02/19/19 (give on floor) - Substance & Tx. History Hx Alcohol Use: Yes Hx Substance Use: Yes Substance Use Type: Alcohol, Cocaine Hx Substance Use Treatment: Yes - Substances abused Alcohol Substance route: Oral Frequency: Daily Amount used: a bottle bacardi, 1/2 bottle vodka Age of first use: 16 Date of last use: 02/19/19 Crack Substance route: Smoking Frequency: Daily Amount used: $60 Age of first use: 18 Date of last use: 02/19/19 Family Disease History - Family Disease History Family Disease History: Heart Disease: Father (living - HTN, pot and alcohol), CA: Mother (hx cva, dementia; Breast Ca.), Other: Father, Mother, Brother (one - no contact), Sister (one - no contact) Admission Physical Exam S - Vital Signs Vital Signs: Vital Signs - 24 hr 02/19/19 02/19/19 12:37 13:04 Temperature 97.6 F 97.6 F Pulse Rate 84 84 Respiratory 18 18 Rate Blood Pressure 117/74 117/74 - Physical General Appearance: Yes: Nourished, Appropriately Dressed, Moderate Distress, Tremorous, Anxious HEENTM: Yes: EOMI, Hearing grossly Normal, Normocephalic, Normal Voice, Pharynx Normal Respiratory: Yes: Normal Breath Sounds, No Respiratory Distress, Other (my lungs hurt from all the crack) Neck: Yes: No masses,lesions,Nodules, Supple Breast: Yes: Breast Exam Deferred Cardiology: Yes: Regular Rhythm, Regular Rate Abdominal: Yes: Flat, Soft Genitourinary: Yes: Frequency Back: Yes: Normal Inspection Musculoskeletal: Yes: full range of Motion, Gait Steady, Back pain Extremities: Yes: Normal Inspection, Non-Tender, Tremors Neurological: Yes: Fully Oriented, Alert, Motor Strength 5/5, Normal Mood/Affect , Normal Response Integumentary: Yes: Normal Color, Dry, Warm Lymphatic: Yes: Within Normal Limits - Diagnostic (1) Alcohol dependence with uncomplicated withdrawal Current Visit: Yes Status: Chronic (2) Cocaine dependence, uncomplicated Current Visit: Yes Status: Acute (3) GERD (gastroesophageal reflux disease) Current Visit: Yes Status: Acute Qualifiers: Esophagitis presence: without esophagitis Qualified Code(s): K21.9 - Gastro -esophageal reflux disease without esophagitis (4) BPH (benign prostatic hyperplasia) Current Visit: Yes Status: Acute Qualifiers: Lower urinary tract symptom presence: symptoms present Lower urinary tract symptom detail: nocturia Qualified Code(s): N40.1 - Benign prostatic hyperplasia with lower urinary tract symptoms; R35.1 - Nocturia (5) Dehydration Current Visit: Yes Status: Acute (6) Nicotine dependence Current Visit: Yes Status: Chronic Qualifiers: Nicotine product type: cigarettes Substance use status: uncomplicated Qualified Code(s): F17.210 - Nicotine dependence, cigarettes, uncomplicated Cleared for Admission [facility] - Detox or Rehab S Level of Care: Medically Managed Detox Regimen/Protocol: Librium Breathalyzer - Breathalyzer Breathalyzer: 0 Urine Drug Screen - Test Device Lot number: [id number] Expiration date: 11/16/20 - Control Is test valid?: Yes - Results Drug screen NEGATIVE: No Urine drug screen results: THC-Marijuana, PILAR-Cocaine Inpatient Rehab Admission - Rehab Decision to Admit Inpatient rehab admission?: No
[2019-02-19] MEDS ORDERED: METHOCARBAMOL 500 MG TABLET PO PRN (14:32)
[2019-02-19] MEDS ORDERED: MAGNESIUM HYDROX 2400MG/30ML ORAL SUSPENSION 30 ML CUP PO PRN (14:32)
[2019-02-19] MEDS ORDERED: MAGNESIUM CITRATE 300 ML BOTTLE PO PRN (14:32)
[2019-02-19] MEDS ORDERED: ACETAMINOPHEN 325 MG TABLET (FP) PO PRN (14:32)
[2019-02-19] MEDS ORDERED: IBUPROFEN 400 MG TABLET (FP) PO PRN ×2 (14:32)
[2019-02-19] MEDS ORDERED: MAG HYDROX/AL HYDROX/SIMETH 30 ML UNIT-DOSE CUP PO PRN (14:32)
[2019-02-19] MEDS ORDERED: MELATONIN 5 MG TABLETS PO PRN (14:32)
[2019-02-19] MEDS ORDERED: hydrOXYzine PAMOATE 25 MG CAPSULE (FP) PO PRN (14:32)
[2019-02-19] MEDS ORDERED: NICOTINE POLACRILEX 4 MG GUM BUC PRN (14:32)
[2019-02-19] MEDS ORDERED: chlordiazePOXIDE HCL 25 MG CAPSULE PO PRN (14:32)
[2019-02-19] MEDS ORDERED: BISMUTH SUBSALICYLATE 524 MG/30 ML UD PO PRN (14:32)
[2019-02-19] MEDS ORDERED: MENTHOL/PHENOL 1 EACH UD MM PRN (14:32)
[2019-02-19] MEDS ORDERED: chlordiazePOXIDE HCL 25 MG CAPSULE PO ONE (15:30)
[2019-02-19] MEDS: chlordiazePOXIDE HCL 25 MG CAPSULE PO SCH ×2 (17:12→22:16)
[2019-02-19] MEDS: LIDOCAINE 5% TOPICAL PATCH TP SCH (18:34)
[2019-02-19] MEDS: THIAMINE HCL 100 MG TABLET (FP) PO SCH (22:16)
[2019-02-19] MEDS: LIDOCAINE PATCH REMOVAL MC SCH (23:03)
[2019-02-20] MEDS: chlordiazePOXIDE HCL 25 MG CAPSULE PO SCH ×3 (06:04→17:44)
[2019-02-20] MEDS: PRENATAL VITAMINS W/ FOLIC ACID TABLET (FP) PO SCH (10:23)
[2019-02-20] MEDS: LIDOCAINE 5% TOPICAL PATCH TP SCH (10:23)
[2019-02-20 11:30] LABS: HEMATOCRIT 40.3 % (35.4-49); HEMOGLOBIN 13.5 GM/dL (11.7-16.9); MCH 30.8 pg (25.7-33.7); MCHC 33.5 g/dl (32.0-35.9); MEAN PLT VOLUME 9.6 fl (7.5-11.1); PLATELET COUNT 202 K/MM3 (134-434); RBC 4.38 M/mm3 (4.00-5.60); RDW 13.1 % (11.9-15.9); WHITE BLOOD COUNT 5.1 K/mm3 (4.0-10.0)
[2019-02-20 11:37] LABS: ALBUMIN 3.1 g/dl (3.4-5.0); BILIRUBIN,TOTAL 0.4 mg/dL (0.2-1); BLOOD UREA NITROGEN 8.6 mg/dL (7-18); CALCIUM 8.5 mg/dL (8.5-10.1); POTASSIUM 3.8 mmol/L (3.5-5.1); TOT PROT 6.1 g/dl (6.4-8.2)
--- NOTE | 2019-02-20 14:05 | PN ---
[facility] CIWA - CIWA Score Nausea/Vomitin-Mild Nausea/No Vomiting Muscle Tremors: 4-Moderate,w/Arms Extend Anxiety: 3 Agitation: 3 Paroxysmal Sweats: 3 Orientation: 0-Oriented Tacttile Disturbances: 0-None Auditory Disturbances: 0-None Visual Disturbances: 0-None Headache: 0-None Present CIWA-Ar Total Score: 14 S Progress Note (SOAP) Subjective: Body ache, agitated, angry Objective: 02/20/19 14:03 Last Vital Signs Temp Pulse Resp BP Pulse Ox 97.7 F 77 18 136/81 02/20/19 09:02 02/20/19 09:02 02/20/19 09:02 02/20/19 09:02 Laboratory Tests 02/20/19 02/20/19 02/20/19 08:00 08:00 08:00 WBC 5.1 RBC 4.38 Hgb 13.5 Hct 40.3 MCV 92.0 MCH 30.8 MCHC 33.5 RDW 13.1 Plt Count 202 MPV 9.6 Sodium 144 Potassium 3.8 Chloride 107 Carbon Dioxide 33 H Anion Gap 4 L BUN 8.6 Creatinine 1.0 Est GFR (CKD-EPI)AfAm 101.98 Est GFR (CKD-EPI)NonAf 87.99 Random Glucose 85 Calcium 8.5 Total Bilirubin 0.4 AST 24 ALT 31 Alkaline Phosphatase 49 Total Protein 6.1 L Albumin 3.1 L RPR Titer Nonreactive Labs reviewed Assessment: 02/20/19 14:04 Withdrawal symptoms Plan: Continue detox Encouraged PO water intake
[2019-02-20] MEDS: THIAMINE HCL 100 MG TABLET (FP) PO SCH (22:58)
[2019-02-20] MEDS ORDERED: chlordiazePOXIDE HCL 10 MG CAPSULE PO SCH (23:00)
[2019-02-20] MEDS: LIDOCAINE PATCH REMOVAL MC SCH (23:03)
[2019-02-21] MEDS ORDERED: chlordiazePOXIDE 5 MG CAPSULE PO ONE (05:45)
[2019-02-21] MEDS: chlordiazePOXIDE HCL 25 MG CAPSULE PO SCH ×4 (07:40→22:08)
[2019-02-21] MEDS ORDERED: WITCH HAZEL 50% (TUCKS) 40 PAD/JAR PAD TP PRN (10:31)
[2019-02-21] MEDS: PRENATAL VITAMINS W/ FOLIC ACID TABLET (FP) PO SCH (10:41)
[2019-02-21] MEDS: LIDOCAINE 5% TOPICAL PATCH TP SCH (10:42)
--- NOTE | 2019-02-21 13:26 | PN ---
S CIWA - CIWA Score Nausea/Vomitin (Stomach Cramping.) Muscle Tremors: None Anxiety: 4-Mod. Anxious/Guarded Agitation: 2 Paroxysmal Sweats: No Perspiration Orientation: 0-Oriented Tacttile Disturbances: 0-None Auditory Disturbances: 1-Very Mild Visual Disturbances: 1-Very Mild Sensitivity Headache: 0-None Present CIWA-Ar Total Score: 10 BHS Progress Note (SOAP) Subjective: Body Aches, Anxious, Stomach Cramping, Constipation. Objective: PATIENT A & O X 3, OBSERVED AMBULATING ON UNIT UNASSISTED. IN NO ACUTE DISTRESS. 02/21/19 13:27 Vital Signs Temperature 98.1 F 02/21/19 09:14 Pulse Rate 79 02/21/19 13:04 Respiratory Rate 18 02/21/19 13:04 Blood Pressure 126/82 02/21/19 13:04 O2 Sat by Pulse Oximetry (%) Laboratory Tests 02/20/19 02/20/19 02/20/19 08:00 08:00 08:00 WBC 5.1 RBC 4.38 Hgb 13.5 Hct 40.3 MCV 92.0 MCH 30.8 MCHC 33.5 RDW 13.1 Plt Count 202 MPV 9.6 Sodium 144 Potassium 3.8 Chloride 107 Carbon Dioxide 33 H Anion Gap 4 L BUN 8.6 Creatinine 1.0 Est GFR (CKD-EPI)AfAm 101.98 Est GFR (CKD-EPI)NonAf 87.99 Random Glucose 85 Calcium 8.5 Total Bilirubin 0.4 AST 24 ALT 31 Alkaline Phosphatase 49 Total Protein 6.1 L Albumin 3.1 L RPR Titer Nonreactive LABS NOTED. RESULTS OF DETOX ADMISSION QFT /TB TEST PENDING. 02/21/19 13:32 Assessment: 02/21/19 13:27 WITHDRAWAL SYMPTOMS. Plan: CONTINUE DETOX.
[2019-02-21] MEDS: DOCUSATE SODIUM 100 MG CAPSULE (FP) PO SCH ×2 (13:31→22:09)
[2019-02-21] MEDS: LIDOCAINE PATCH REMOVAL MC SCH (22:08)
[2019-02-21] MEDS: THIAMINE HCL 100 MG TABLET (FP) PO SCH (22:08)
[2019-02-22] MEDS ORDERED: chlordiazePOXIDE HCL 10 MG CAPSULE PO PRN
[2019-02-22] MEDS ORDERED: chlordiazePOXIDE HCL 10 MG CAPSULE PO SCH (05:00)
[2019-02-22] MEDS ORDERED: chlordiazePOXIDE 5 MG CAPSULE ONE (05:34)
[2019-02-22] MEDS: DOCUSATE SODIUM 100 MG CAPSULE (FP) PO SCH (06:17)
[2019-02-22 06:41] VITALS: TEMP 97.9
[2019-02-22 09:14] VITALS: BP 122/76; PULSE 84
--- NOTE | 2019-02-22 09:14 | PN ---
[facility] Progress Note Note: pt c/o of pt was admitted in withdrawals pt c/o of withdrawal symptoms and aggressive symptomatic management attempted however pt in spite of extensive motivational counseling regarding the risk of relapse, DT's, seizures and or loss, pt chose to sign out AMA.
--- NOTE | 2019-02-22 09:17 | DS ---
[facility] Detox Discharge Summary Admission Date: 02/19/19 - History Present History: Alcohol Dependence, Cocaine Dependence - Physical Exam Results Vital Signs: Vital Signs Temperature 97.9 F 02/22/19 09:13 Pulse Rate 84 02/22/19 09:13 Respiratory Rate 16 02/22/19 09:13 Blood Pressure 122/76 02/22/19 09:13 O2 Sat by Pulse Oximetry (%) - Treatment Patient has Accepted a Rehab Referral to: pt declined rehab and or aftercare - Medication Discharge Medications: Ambulatory Orders Tamsulosin HCl [Flomax] 0.4 mg PO DAILY 02/19/19 - Diagnosis (1) BPH (benign prostatic hyperplasia) Current Visit: Yes Status: Chronic Qualifiers: Lower urinary tract symptom presence: symptoms present Lower urinary tract symptom detail: nocturia Qualified Code(s): N40.1 - Benign prostatic hyperplasia with lower urinary tract symptoms; R35.1 - Nocturia (2) Cocaine dependence, uncomplicated Current Visit: Yes Status: Chronic (3) GERD (gastroesophageal reflux disease) Current Visit: Yes Status: Chronic Qualifiers: Esophagitis presence: without esophagitis Qualified Code(s): K21.9 - Gastro -esophageal reflux disease without esophagitis (4) Alcohol dependence with uncomplicated withdrawal Current Visit: Yes Status: Chronic (5) Nicotine dependence Current Visit: Yes Status: Chronic Qualifiers: Nicotine product type: cigarettes Substance use status: uncomplicated Qualified Code(s): F17.210 - Nicotine dependence, cigarettes, uncomplicated (6) Cocaine dependence Current Visit: Yes Status: Chronic Qualifiers: Substance use status: uncomplicated Qualified Code(s): F14.20 - Cocaine dependence, uncomplicated (7) Schizoaffective disorder Current Visit: No Status: Chronic (8) History of bipolar disorder Current Visit: No Status: Suspected - AMA Did Patient Leave Against Medical Advice: Yes
[2019-02-22] MEDS ORDERED: HYDROCORTISONE 2.5% TOPICAL CREAM 30 GM TUBE TP SCH (10:00)
[2019-02-23] MEDS ORDERED: chlordiazePOXIDE HCL 10 MG CAPSULE PO SCH (05:00)
[2019-02-24] MEDS ORDERED: chlordiazePOXIDE HCL 10 MG CAPSULE PO ONE (05:00)
== END 2019-02-22 09:38 | disposition left against medical advice (07) | DRG 770 ==
LOC: YASAS 11:15 → Y6N 15:13
PROVIDERS: ADMIT Surgery; ATTEND Surgery
PROC: HZ2ZZZZ Detoxification Services for Substance Abuse Treatment (ICD-10-PCS; principal; 2019-02-19)
DX: F10.230 Alcohol dependence with withdrawal, uncomplicated (principal); F14.20 Cocaine dependence, uncomplicated; F17.210 Nicotine dependence, cigarettes, uncomplicated; F25.9 Schizoaffective disorder, unspecified; N40.0 Benign prostatic hyperplasia without lower urinary tract symptoms; K21.9 Gastro-esophageal reflux disease without esophagitis; E86.0 Dehydration; Z96.0 Presence of urogenital implants; Z91.14 Patient's other noncompliance with medication regimen; Z88.0 Allergy status to penicillin; Z91.013 Allergy to seafood; Z91.5 Personal history of self-harm
CPT/HCPCS: 36415; 80053; 85027; 86480; 86593

== ENCOUNTER 2024-06-27 10:55 | Inpatient (IN) | payer OTHER ==
[2024-06-27 11:17] VITALS: BMI 23.3
[2024-06-27] MEDS ORDERED: LOPERAMIDE HCL 2 MG CAPSULE PO PRN (11:20)
[2024-06-27] MEDS ORDERED: ONDANSETRON *ODT* 4 MG TABLET SL PRN (11:20)
[2024-06-27] MEDS ORDERED: BENZOCAINE/MENTHOL (CHLORASEPTIC ) LOZENGE MM PRN (11:20)
[2024-06-27] MEDS ORDERED: chlordiazePOXIDE HCL 25 MG CAPSULE PO PRN (11:20)
[2024-06-27] MEDS ORDERED: MAGNESIUM HYDROX 2400MG/30ML ORAL SUSPENSION 30 ML CUP PO PRN (11:20)
[2024-06-27] MEDS ORDERED: BISMUTH SUBSALICYLATE 524 MG/30 ML PO PRN (11:20)
[2024-06-27] MEDS ORDERED: BENZONATATE 200 MG CAPSULE PO PRN (11:20)
[2024-06-27] MEDS ORDERED: MAG HYDROX/AL HYDROX/SIMETH 30 ML UNIT-DOSE CUP PO PRN (11:20)
[2024-06-27] MEDS ORDERED: IBUPROFEN 400 MG TABLET (FP) PO PRN (11:20)
[2024-06-27] MEDS ORDERED: NICOTINE POLACRILEX 2 MG LOZENGE BC PRN (11:20)
[2024-06-27] MEDS ORDERED: IBUPROFEN 600 MG TABLET (FP) PO PRN (11:20)
[2024-06-27] MEDS ORDERED: guaiFENesin 600 MG TABLET.ER (FP) PO PRN (11:20)
[2024-06-27] MEDS ORDERED: ACETAMINOPHEN 325 MG TABLET (FP) PO PRN (11:20)
[2024-06-27] MEDS ORDERED: DICYCLOMINE HCL 10 MG CAPSULE PO PRN (11:20)
[2024-06-27] MEDS ORDERED: NALOXONE (NARCAN) HCL 4 MG/0.1 ML SPRAY NS PRN (11:20)
[2024-06-27] MEDS ORDERED: POLYETHYLENE GLYCOL (HEALTHYLAX) 3350 17 GM PACKET PO PRN (11:20)
[2024-06-27] MEDS ORDERED: NICOTINE POLACRILEX 2 MG GUM BUC PRN (11:20)
[2024-06-27] MEDS ORDERED: chlordiazePOXIDE HCL 25 MG CAPSULE ONE (11:50)
[2024-06-27] MEDS: chlordiazePOXIDE HCL 25 MG CAPSULE PO SCH (11:55)
[2024-06-27] MEDS: hydrOXYzine PAMOATE 25 MG CAPSULE (FP) PO PRN (12:30)
[2024-06-27] MEDS: NALTREXONE HCL 50 MG TABLET PO ONE (14:27)
[2024-06-27] MEDS: METHOCARBAMOL 500 MG TABLET PO PRN (17:45)
[2024-06-27] MEDS: THIAMINE 100 MG TABLET PO SCH (22:42)
[2024-06-27] MEDS: MELATONIN 5 MG TABLETS PO SCH (22:42)
[2024-06-28] MEDS: TAMSULOSIN HCL 0.4 MG CAP PO SCH (07:48)
[2024-06-28] MEDS: NALTREXONE HCL 50 MG TABLET PO SCH (10:12)
[2024-06-28] MEDS: PRENATAL VITAMINS W/ FOLIC ACID TABLET (FP) PO SCH (10:12)
[2024-06-28 15:51] LABS: HEMOGLOBIN 14.2 GM/dL (11.7-16.9); MCH 30.1 pg (25.7-33.7); MCHC 32.3 g/dl (32.0-35.9); MEAN CELL VOLUME 93.3 fl (80-96); MEAN PLT VOLUME 9.4 fl (7.5-11.1); PLATELET COUNT 233 10^3/uL (134-434); RBC 4.71 M/mm3 (4.00-5.60); RDW 13.5 % (11.9-15.9); WHITE BLOOD COUNT 4.4 K/mm3 (4.0-10.0)
[2024-06-28 16:25] LABS: POTASSIUM 3.8 mmol/L (3.5-5.1)
[2024-06-28 16:42] LABS: ALBUMIN 3.4 g/dl (3.4-5.0); BLOOD UREA NITROGEN 9.5 mg/dL (7-18); CALCIUM 9.6 mg/dL (8.5-10.1)
[2024-06-28 16:45] LABS: CREATININE 0.9 mg/dL (0.55-1.3)
[2024-06-28 16:48] LABS: BILIRUBIN,TOTAL 0.4 mg/dL (0.2-1); TOT PROT 6.8 g/dl (6.4-8.2)
[2024-06-29] MEDS: chlordiazePOXIDE HCL 25 MG CAPSULE PO SCH (05:23)
[2024-06-29 17:15] VITALS: RESP 18
[2024-06-29 20:47] VITALS: BP 115/71; PULSE 89; TEMP 97.7
[2024-06-30] MEDS ORDERED: chlordiazePOXIDE HCL 10 MG CAPSULE PO PRN
[2024-06-30] MEDS: chlordiazePOXIDE HCL 10 MG CAPSULE PO SCH (05:55)
[2024-06-30] MEDS: NALOXONE (NYS OPIOID OVERDOSE PROGRAM) 4 MG/0.1 ML SPRAY NS SCH (09:33)
[2024-07-01] MEDS ORDERED: chlordiazePOXIDE HCL 10 MG CAPSULE PO SCH (05:00)
[2024-07-02] MEDS ORDERED: chlordiazePOXIDE HCL 10 MG CAPSULE PO ONE (05:00)
== END 2024-06-30 09:20 | disposition home or self-care (01) | DRG 774 ==
LOC: YASAS 10:55 → Y6N 11:33
PROVIDERS: ADMIT Allergy & Immunology; ATTEND Surgery
PROC: HZ2ZZZZ Detoxification Services for Substance Abuse Treatment (ICD-10-PCS; principal; 2024-06-27)
DX: F10.230 Alcohol dependence with withdrawal, uncomplicated (principal); F14.20 Cocaine dependence, uncomplicated; F17.210 Nicotine dependence, cigarettes, uncomplicated; F25.9 Schizoaffective disorder, unspecified; N40.0 Benign prostatic hyperplasia without lower urinary tract symptoms; Z59.00 Homelessness unspecified
CPT/HCPCS: 36415; 80053; 80305; 80307; 85027; 86780; 93005; 93010